=== PATIENT | female | born 1970 | race Caucasian/White ===

== ENCOUNTER 2018-01-15 06:20 | Day surgery (SDC) | payer BC ==
[2018-01-14 14:08] VITALS: BMI 46.3
[~2018-01-15 06:20] MED LIST: Cyclopentolate 1% Opth Drop 2 ML BOT FS SCH; Fluorouracil 100 MG, Enoxaparin Sodium 25 MG, EPINEPHrine 0.3 MG in Ophthalmic Irrigati... FS SCH; Phenylephrine 2.5% Ophth Soln 5 ML BOT FS SCH
[2018-01-15] MEDS ORDERED: Midazolam HCl 2 mg/2 ml Vial ONE (06:46)
[2018-01-15] MEDS ORDERED: Fentanyl 100 MCG/2 ML VIAL ONE (06:46)
[2018-01-15] MEDS ORDERED: Cyclopentolate 1% Opth Drop 2 ML BOT ONE (06:58)
[2018-01-15] MEDS ORDERED: Phenylephrine 2.5% Ophth Soln 5 ML BOT ONE (06:58)
[2018-01-15] MEDS ORDERED: PROPOFOL 20 ML ONE (08:35)
[2018-01-15] MEDS ORDERED: Bupivacaine 0.75% 10 ML AMP ONE (10:51)
[2018-01-15] MEDS ORDERED: Lidocaine 4% PF 5 ML AMP ONE (10:51)
[2018-01-15] MEDS ORDERED: Triamcinolone 40 MG/ML VIAL ONE (10:51)
[2018-01-15] MEDS ORDERED: PROPOFOL 200 MG/20 ML VIAL ONE (10:51)
[2018-01-15] MEDS ORDERED: Maxitrol 0.1% Opth Oint 3.5 GM TUBE ONE (10:51)
[2018-01-15] MEDS ORDERED: CEFAZOLIN 1 GM VIAL ONE (10:51)
[2018-01-15] MEDS ORDERED: Indocyanine Green 25 MG/10 ML VIAL ONE (10:51)
[2018-01-15] MEDS ORDERED: Lidocaine 1% PF 5 ML VIAL ONE (10:51)
--- NOTE | 2018-03-04 20:23 | OP ---
DATE OF PROCEDURE: 01/15/2018 PREOPERATIVE DIAGNOSIS: Macular hole, left eye. POSTOPERATIVE DIAGNOSIS: Macular hole, left eye. PROCEDURES PERFORMED: Pars plana vitrectomy and internal limiting membrane peel, left eye. ANESTHESIA: Local with monitored anesthesia care. DESCRIPTION OF PROCEDURE: The patient was identified in the preoperative holding area. Appropriate informed consent for the planned surgical procedure on the left eye had been obtained. The patient was transported to the operative suite, where appropriate cardiopulmonary monitoring was established. Local anesthesia was obtained using retrobulbar modified Van Lint lid block using 50:50 mixture of 4% lidocaine and 0.75% bupivacaine. The patient was prepped and draped in usual sterile manner for ophthalmic surgery in left eye. Lid speculum was placed in the left eye. 25-gauge trocar was placed through conjunctiva and sclera superotemporally, inferotemporally, and supranasally. Infusion line was placed inferotemporally. Light pipe vitreous cutter was inserted into the eye. Core vitrectomy was performed. Indocyanine green dye was infused on to the posterior pole x1, identifying the internal limiting membrane. This was elevated using a membrane scraper and peeled across the macula without complication. Indirect ophthalmoscope was used to exam the retina 360 degrees. Prophylactic laser was placed behind the sclerotomy sites. 10 minutes was allowed for fluid to drain posteriorly. 15% propane gas was infused into the eye. Trocars were removed. The eye was noted to retain pressure well. Retrobulbar Kenalog and subconjunctival Ancef were placed. Antibiotic ointment was placed. The eye was patched and shielded. The patient was advised to avoid flat and back positioning. Keep the patch and shield on and follow up in the morning with Dr. Simmons. Job ID: [id number]
== END 2018-01-15 10:25 | disposition home or self-care (01) ==
LOC: SDC 06:20
PROVIDERS: ATTEND Ophthalmology Retina Specialist
PROC: 08953ZZ Drainage of Left Vitreous, Percutaneous Approach (ICD-10-PCS; principal; 2018-01-15)
DX: H35.342 Macular cyst, hole, or pseudohole, left eye (principal); Z91.040 Latex allergy status; Z88.1 Allergy status to other antibiotic agents; Z88.2 Allergy status to sulfonamides; Z88.0 Allergy status to penicillin; Z79.899 Other long term (current) drug therapy
CPT/HCPCS: 67025; J0171; J0690; J1650; J2001; J2250; J2704; J3010; J3301; J3490; J9190

== ENCOUNTER 2018-03-19 09:57 | Day surgery (SDC) | payer BC ==
[2018-03-18 10:44] VITALS: BMI 46.3
[2018-03-19] MEDS ORDERED: Cyclopentolate 1% Opth Drop 2 ML BOT ONE (10:50)
[2018-03-19] MEDS ORDERED: Phenylephrine 2.5% Ophth Soln 5 ML BOT ONE (10:50)
[2018-03-19] MEDS ORDERED: PROPOFOL 20 ML ONE (11:53)
[2018-03-19] MEDS ORDERED: Midazolam HCl 2 mg/2 ml Vial ONE (11:53)
[2018-03-19] MEDS ORDERED: Fentanyl 100 MCG/2 ML VIAL ONE (11:53)
[2018-03-19] MEDS ORDERED: AcetaZOLAMIDE ER 500 MG CAP ONE (13:23)
[2018-03-19] MEDS ORDERED: Bupivacaine 0.75% 10 ML AMP ONE (14:41)
[2018-03-19] MEDS ORDERED: Lidocaine 4% PF 5 ML AMP ONE (14:41)
[2018-03-19] MEDS ORDERED: Maxitrol 0.1% Opth Oint 3.5 GM TUBE ONE (14:41)
[2018-03-19] MEDS ORDERED: Triamcinolone 40 MG/ML VIAL ONE (14:41)
[2018-03-19] MEDS ORDERED: Indocyanine Green 25 MG/10 ML VIAL ONE (14:41)
[2018-03-19] MEDS ORDERED: PROPOFOL 200 MG/20 ML VIAL ONE (14:41)
[2018-03-19] MEDS ORDERED: Lidocaine 1% PF 5 ML VIAL ONE ×2 (14:41)
--- NOTE | 2018-03-19 20:57 | OP ---
DATE OF PROCEDURE: 03/19/2018 PREOPERATIVE DIAGNOSIS: Macular hole, left eye. POSTOPERATIVE DIAGNOSIS: Macular hole, left eye. PROCEDURE PERFORMED: Pars plana vitrectomy and internal limiting membrane peel, left eye. ANESTHESIA: Local with monitored anesthesia care. DESCRIPTION OF PROCEDURE: The patient was identified in the preoperative holding area. Appropriate informed consent for the planned surgical procedure on the left eye. Local anesthesia was obtained using retrobulbar block, left eye was prepped and draped in usual sterile manner for an ophthalmic surgery on the left eye. Lid speculum was placed on the left eye. A 25-gauge trocar was placed, through the conjunctiva and sclera superotemporally, inferotemporally, and supranasally. Infusion line was placed inferotemporally. Light pipe and vitreous cutter were inserted into the eye. Core vitrectomy was performed and very little residual vitreous was identified. New inferior internal limiting membrane peel was performed after indocyanine green dye staining x1. The eye level was then peel into a free island flap and transposed into the macular hole. No holes, breaks, or tears were identified. Complete air-fluid exchange was performed. A 10-minute was being left for fluid to drain posteriorly. A 15% propane gas was infused into the eye. Trocars were removed and all sclerotomy suture was closed. Pressure was adjusted to 20 . Retrobulbar Kenalog and subconjunctival Ancef were placed. Atropine antibiotic ointment was placed and the eye was patched and shielded. The patient was taken to the postop recovery unit in good condition, having suffered no immediate perioperative complications. The patient was instructed to keep the patch and shield on, face down position. Followup appointment with Dr. Simmons. Job ID: [id number]
== END 2018-03-19 14:06 | disposition home or self-care (01) ==
LOC: SDC 09:57
PROVIDERS: ATTEND Ophthalmology Retina Specialist
PROC: 08NF3ZZ Release Left Retina, Percutaneous Approach (ICD-10-PCS; principal; 2018-03-19)
PROC: 08T53ZZ Resection of Left Vitreous, Percutaneous Approach (ICD-10-PCS; principal; 2018-03-19)
DX: H35.342 Macular cyst, hole, or pseudohole, left eye (principal); Z79.899 Other long term (current) drug therapy; Z88.0 Allergy status to penicillin; Z88.1 Allergy status to other antibiotic agents; Z88.2 Allergy status to sulfonamides; Z91.040 Latex allergy status
CPT/HCPCS: 67025; J0171; J1650; J2001; J2250; J2704; J3010; J3301; J3490; J9190

== ENCOUNTER 2019-02-02 13:26 | Outpatient (CLI) | payer BC ==
--- NOTE | 2019-02-02 16:31 | MRI ---
MRI OF THE BILATERAL BREASTS WITHOUT AND WITH CONTRAST: 02/02/19 HISTORY: Genetic susceptibility to malignant neoplasm of the breast. BRCA positive. Strong family history of breast cancer. TECHNIQUE: Multiplanar, multisequence MRI images were obtained in the breast without and with IV contrast. Contr ast enhancement curves and 3D MIP reformats were created on the [employer] workstation. FINDINGS: Predominantly fatty replaced breast parenchyma is seen. Minimal background parenchymal enhancement is seen. No suspicious enhancement or suspicious mass is seen in either breast. No axillary adenopathy is seen. No internal mammary lymph nodes are identified. The visualized anterior liver and osseous structures are unremarkable. IMPRESSION: BIRADS 1: Negative Routine annual screening mammography (for women over age 40).
== END 2019-02-02 13:27 | disposition home or self-care (01) ==
LOC: BICMRI 13:26
PROVIDERS: ATTEND Student in an Organized Health Care Education/Training Program
DX: Z15.01 Genetic susceptibility to malignant neoplasm of breast (principal)
CPT/HCPCS: 82565; A9577; C8908

== ENCOUNTER 2019-02-18 12:35 | Day surgery (SDC) | payer BC ==
[2019-02-17 13:37] VITALS: BMI 47.1
[~2019-02-18 12:35] MED LIST changes: -Cyclopentolate 1% Opth Drop 2 ML BOT FS SCH; -Fluorouracil 100 MG, Enoxaparin Sodium 25 MG, EPINEPHrine 0.3 MG in Ophthalmic Irrigati... FS SCH; +Fluorouracil 100 MG, Enoxaparin Sodium 25 MG, EPINEPHrine 0.3 MG in Ophthalmic Irrigati... IRR SCH; -Phenylephrine 2.5% Ophth Soln 5 ML BOT FS SCH
[2019-02-18] MEDS ORDERED: Maxitrol 0.1% Opth Oint 3.5 GM TUBE ONE (14:00)
[2019-02-18] MEDS ORDERED: Lidocaine 4% PF 5 ML AMP ONE (14:00)
[2019-02-18] MEDS ORDERED: CEFAZOLIN 1 GM VIAL ONE (14:00)
[2019-02-18] MEDS ORDERED: Bupivacaine PF 0.75% SDV 10 ML ONE (14:00)
[2019-02-18] MEDS ORDERED: Lidocaine 1% PF 5 ML VIAL ONE (14:00)
[2019-02-18] MEDS ORDERED: Triamcinolone 40 MG/ML VIAL ONE (14:00)
[2019-02-18] MEDS ORDERED: Phenylephrine 2.5% Ophth Soln 5 ML BOT ONE (14:12)
[2019-02-18] MEDS ORDERED: Cyclopentolate 1% Opth Drop 2 ML BOT ONE (14:12)
[2019-02-18] MEDS ORDERED: Midazolam HCl 2 mg/2 ml Vial ONE (14:39)
[2019-02-18] MEDS ORDERED: PROPOFOL 20 ML ONE (14:39)
[2019-02-18] MEDS ORDERED: Fentanyl 100 MCG/2 ML VIAL ONE (14:39)
--- NOTE | 2019-02-18 16:47 | OP ---
DATE OF PROCEDURE: 02/18/2019 PREOPERATIVE DIAGNOSIS: Rhegmatogenous retinal detachment, right eye. POSTOPERATIVE DIAGNOSIS: Rhegmatogenous retinal detachment, right eye. PROCEDURE: Pars plana vitrectomy and retinal detachment repair, right eye. ANESTHESIA: Local with monitored anesthesia care. PROCEDURE IN DETAIL: The patient was identified in the preoperative holding area. Appropriate informed consent for the planned surgical procedure on the right eye had been obtained. The patient was transported to the operative suite. Appropriate cardiopulmonary monitoring was established. Local anesthesia was obtained using retrobulbar modified Van Lint lid block using 50:50 mixture of 4% lidocaine and 0.75% bupivacaine. The patient was prepped and draped in the usual sterile manner for ophthalmic surgery in the right eye. Lid speculum was placed in the right eye. A 25-gauge trocar was placed on the conjunctiva and sclera superotemporally, inferotemporally, and supranasally. Infusion line was placed inferotemporally. Light pipe vitreous cutter was inserted in the eye. Core vitrectomy was performed. Vitreous base was carefully shaved back 360 degrees using wide field viewing system. A hole was noted at the 10 o'clock position posterior to the previously existing laser. Posterior drained retinotomy was created and complete air-fluid exchange was performed, with 10 minutes being left for fluid to drain posteriorly, 360 laser barricade was placed with special emphasis for the supratemporal detachment. 28% sulfur hexafluoride gas was infused into the eye. Trocars were removed. Sclerotomy suture was closed with 6-0 plain gut suture. Retrobulbar Kenalog and subconjunctival Ancef were placed. Antibiotic ointment placed. Eye was patched and shielded. The patient was taken to postoperative recovery unit in good condition, having suffered no immediate perioperative complications. The patient has been advised to position head up or left side down, and followup appointment with Dr. Simmons. Job ID: [id number]
== END 2019-02-18 16:58 | disposition home or self-care (01) ==
LOC: SDC 12:35
PROVIDERS: ATTEND Ophthalmology Retina Specialist
PROC: 08T43ZZ Resection of Right Vitreous, Percutaneous Approach (ICD-10-PCS; principal; 2019-02-18)
DX: H33.021 Retinal detachment with multiple breaks, right eye (principal); Z88.0 Allergy status to penicillin; Z88.2 Allergy status to sulfonamides; Z91.040 Latex allergy status
CPT/HCPCS: 67025; J0171; J0690; J1650; J2001; J2250; J2704; J3010; J3301; J3490; J9190

== ENCOUNTER 2020-02-21 06:58 | Outpatient (CLI) | payer BC ==
[2020-02-22 06:30] LABS: SARS-CoV-2 MS2 Positive; SARS-CoV-2 N Gene Negative; SARS-CoV-2 S Gene Negative; SARS-CoV-2 by NAA Not Detected (NotDetected); SARS-CoV-2 orf1ab Negative
== END 2020-02-21 06:59 | disposition home or self-care (01) ==
LOC: LABBT 06:58
PROVIDERS: ATTEND Ophthalmology Retina Specialist
DX: Z01.812 Encounter for preprocedural laboratory examination (principal); Z20.828 Contact with and (suspected) exposure to other viral communicable diseases
CPT/HCPCS: 87635; U0003

== ENCOUNTER 2020-02-24 06:12 | Day surgery (SDC) | payer BC ==
[2020-02-23 09:33] VITALS: BMI 49.4
[2020-02-24] MEDS ORDERED: Phenylephrine 2.5% Ophth Soln 5 ML BOT ONE (06:18)
[2020-02-24] MEDS ORDERED: Cyclopentolate HCl 1% 5 ML BOT ONE (06:19)
[2020-02-24] MEDS ORDERED: Fluorouracil 100 MG, Enoxaparin Sodium 25 MG, EPINEPHrine 0.3 MG in Ophthalmic Irrigati... IRR SCH (06:30)
[2020-02-24] MEDS ORDERED: PROPOFOL 20 ML ONE (06:39)
[2020-02-24] MEDS ORDERED: Midazolam HCl 2 mg/2 ml Vial ONE (06:39)
[2020-02-24] MEDS ORDERED: Fentanyl 100 MCG/2 ML VIAL ONE (06:39)
[2020-02-24] MEDS ORDERED: Bupivacaine PF 0.75% SDV 10 ML ONE (11:21)
[2020-02-24] MEDS ORDERED: Lidocaine 4% PF 5 ML AMP ONE (11:21)
[2020-02-24] MEDS ORDERED: Maxitrol 0.1% Opth Oint 3.5 GM TUBE ONE (11:21)
[2020-02-24] MEDS ORDERED: Indocyanine Green 25 MG/10 ML VIAL ONE (11:21)
[2020-02-24] MEDS ORDERED: Enoxaparin Sodium 30 MG/0.3 ML SYRINGE ONE (11:21)
[2020-02-24] MEDS ORDERED: Triamcinolone 40 MG/ML VIAL ONE (11:21)
--- NOTE | 2020-02-24 17:56 | OP ---
DATE OF PROCEDURE: 02/24/2020 PREOPERATIVE DIAGNOSIS: Macular hole, right eye. POSTOPERATIVE DIAGNOSIS: Macular hole, right eye. PROCEDURES PERFORMED: Pars plana vitrectomy and internal limiting membrane peel, right eye. ANESTHESIA: Local with monitored anesthesia care. DESCRIPTION OF PROCEDURE: The patient was identified in the preoperative holding area. Appropriate informed consent for the planned surgical procedure on the right eye had been obtained. The patient was transported to the operative suite, where appropriate cardiopulmonary monitoring was established. Local anesthesia was obtained using retrobulbar modified Van Lint lid block using 50:50 mixture of 4% lidocaine and 0.75% bupivacaine. The patient was prepped and draped in usual sterile manner for ophthalmic surgery on the right eye. Lid speculum was placed in the right eye. A 27-gauge trocar was placed in the conjunctiva and sclera superotemporally, inferotemporally, and supranasally. Infusion line was placed inferotemporally. Light pipe and vitreous cutter inserted into the eye. Core vitrectomy was performed. Indocyanine green dye was infused on the posterior pole x1, identifying the internal limiting membrane. This was elevated using membrane scraper and peeled across the macula using end gripping forceps. Significant moderate epiretinal membrane was identified at this time and peripheral laser had already been placed previously, so no additional laser was required. Complete air-fluid exchange was performed and 10 minutes being allowed for fluid to drain posteriorly, 15% propane gas was infused into the eye. Trocars were removed, and sclerotomy suture was closed with 6-0 plain gut suture. Retrobulbar Kenalog and subconjunctival Ancef were placed. Antibiotic ointment was placed. The eye was patched and shielded. The patient was taken to postoperative recovery unit in good condition, having suffered no immediate perioperative complications. The patient was instructed to keep patch and shied on, avoid lifting or bending. Followup appointment with Dr. Simmons. Job ID: [id number]
== END 2020-02-24 08:30 | disposition home or self-care (01) ==
LOC: SDC 06:12
PROVIDERS: ATTEND Ophthalmology Retina Specialist
PROC: 08T43ZZ Resection of Right Vitreous, Percutaneous Approach (ICD-10-PCS; principal; 2020-02-24)
PROC: 08NE3ZZ Release Right Retina, Percutaneous Approach (ICD-10-PCS; principal; 2020-02-24)
DX: H35.341 Macular cyst, hole, or pseudohole, right eye (principal); Z88.0 Allergy status to penicillin; Z88.1 Allergy status to other antibiotic agents; Z88.2 Allergy status to sulfonamides; Z91.040 Latex allergy status
CPT/HCPCS: 67025; J0171; J1650; J2001; J2250; J2704; J3010; J3301; J3490; J9190

== ENCOUNTER 2020-06-22 14:09 | Outpatient (CLI) | payer BC | END 2020-06-22 14:10 | disposition home or self-care (01) | LOC: BICMAMMO 14:09 | PROVIDERS: ATTEND Student in an Organized Health Care Education/Training Program | DX: Z12.31 Encounter for screening mammogram for malignant neoplasm of breast (principal); Z80.3 Family history of malignant neoplasm of breast; Z85.820 Personal history of malignant melanoma of skin | CPT/HCPCS: 77063; 77067 ==

== ENCOUNTER 2021-08-16 14:03 | Outpatient (CLI) | payer BC | END 2021-08-16 14:04 | disposition home or self-care (01) | LOC: TBSIIMAG 14:03 | PROVIDERS: ATTEND Family Medicine | DX: M47.22 Other spondylosis with radiculopathy, cervical region (principal); R20.0 Anesthesia of skin; R29.898 Other symptoms and signs involving the musculoskeletal system; I67.82 Cerebral ischemia; I25.2 Old myocardial infarction; Z98.1 Arthrodesis status; Z98.890 Other specified postprocedural states; Z80.8 Family history of malignant neoplasm of other organs or systems | CPT/HCPCS: 70553; 72141 ==

== ENCOUNTER 2022-11-28 13:00 | Outpatient (CLI) | payer BC | END 2022-11-28 13:01 | disposition home or self-care (01) | LOC: ULT 13:00 | PROVIDERS: ATTEND Urology | DX: D30.00 Benign neoplasm of unspecified kidney (principal); N28.89 Other specified disorders of kidney and ureter | CPT/HCPCS: 76770 ==

== ENCOUNTER 2022-12-17 08:08 | Outpatient (CLI) | payer BC ==
[2022-12-17] MEDS ORDERED: Iopamidol 370 76% 100 ML VIAL ONE (12:07)
== END 2022-12-17 08:09 | disposition home or self-care (01) ==
LOC: CT 08:08
PROVIDERS: ATTEND Urology
DX: D17.71 Benign lipomatous neoplasm of kidney (principal); N28.89 Other specified disorders of kidney and ureter; K57.30 Diverticulosis of large intestine without perforation or abscess without bleeding
CPT/HCPCS: 74175

== ENCOUNTER 2022-12-27 08:20 | Outpatient (CLI) | payer BC ==
[2022-12-27 08:36] LABS: #Basophils 0.1 thou/uL (0.0-0.2); #Eosinphils 0.1 thou/uL (0.0-0.7); #Monocytes 0.3 thou/uL (0.11-0.59); #Neutrophils 4.3 thou/uL (1.40-6.50); %Basophils 0.8 % (0.0-1.0); %Eosinophils 1.5 % (0.0-10.0); %Lymphocytes 27.5 % (21.0-51.0); %Monocytes 4.8 % (0.0-10.0); %Neutrophils 64.8 % (42.0-75.0); Hematocrit 46.2 % (36.0-47.0); Mean Corpuscular HGB CONC 32.5 g/dL (32.0-36.0); Mean Corpuscular Hemoglobin 30.2 pg (27.0-31.0); Mean Corpuscular Volume 93.1 fl (78.0-98.0); Mean Platelet Volume 9.9 fL (7.4-10.4); Platelet Count 253 10x3/uL (130-400); RBC Distribution Width 13.2 % (11.5-14.5); Red Blood Cell (RBC) Count 4.96 mill/uL (4.20-5.40); White Blood Cell (WBC) Count 6.7 10x3/uL (4.8-10.8)
[2022-12-27 08:51] LABS: Prothrombin Time 13.5 sec (12.0-14.7)
[2022-12-27 08:52] LABS: PTT 30.9 sec (22.9-36.1)
[2022-12-27 16:11] VITALS: BP 163/95; TEMP 98.1
== END 2022-12-27 13:15 | disposition home or self-care (01) ==
LOC: CT 08:20
PROVIDERS: ATTEND Urology
DX: D17.71 Benign lipomatous neoplasm of kidney (principal); N28.0 Ischemia and infarction of kidney; N28.89 Other specified disorders of kidney and ureter
CPT/HCPCS: 36415; 50200; 77012; 85025; 85610; 85730; 88305

== ENCOUNTER 2024-01-15 11:47 | Outpatient (CLI) | payer BC | END 2024-01-15 11:48 | disposition home or self-care (01) | LOC: BICULT 11:47 | PROVIDERS: ATTEND Urology | DX: D17.71 Benign lipomatous neoplasm of kidney (principal) | CPT/HCPCS: 76770 ==